=== PATIENT | female | born 1970 | race Caucasian/White ===

== ENCOUNTER 2017-06-05 08:16 | Day surgery (SDC) | payer BC ==
[2017-06-02 10:26] VITALS: BMI 24.3
[2017-06-05] MEDS ORDERED: methylPREDNISolone ACET (DEPO) 40 MG/1 ML VIAL ONE (08:44)
[2017-06-05] MEDS ORDERED: THROMBIN (BOVINE) 5,000 UNIT VIAL TP ONE ×4 (08:45→12:34)
[2017-06-05] MEDS ORDERED: oxyCODONE HCL 10 MG SUSTAINED ACTING TABLET ONE (09:52)
[2017-06-05] MEDS ORDERED: DEXAMETHASONE SOD PHOSPHATE/PF 10 MG/ML SDV ONE (10:46)
[2017-06-05] MEDS ORDERED: MIDAZOLAM HCL 2 MG/2 ML SINGLE DOSE VIAL ONE ×2 (10:46→12:16)
[2017-06-05] MEDS ORDERED: BUPIVACAINE HCL/PF (5 MG/ML) 30 ML VIAL IJ ONE (10:46)
[2017-06-05] MEDS ORDERED: oxyCODONE HCL 10 MG SUSTAINED ACTING TABLET PO ONE (10:56)
--- NOTE | 2017-06-05 10:56 | HP ---
History & Physical Update - History History: No Change - Physical Physical: No Change - Assessment Assessment: No Change - Plan Plan: No Change
[2017-06-05] MEDS ORDERED: LIDOCAINE 1%/EPI 1:100000 (20 ML MULTI DOSE VIAL) ONE (11:31)
[2017-06-05] MEDS ORDERED: ONDANSETRON 4 MG/2 ML VIAL ONE ×2 (11:38→13:53)
[2017-06-05] MEDS ORDERED: ceFAZolin SODIUM 1 GM VIAL ONE (11:38)
[2017-06-05] MEDS ORDERED: DEXAMETHASONE SOD PHOSPHATE 4 MG/1 ML VIAL ONE (11:38)
[2017-06-05] MEDS ORDERED: LIDOCAINE 1%/EPI 1:100000 (20 ML MULTI DOSE VIAL) IJ ONE (11:45)
[2017-06-05] MEDS ORDERED: methylPREDNISolone ACET (DEPO) 40 MG/1 ML VIAL IM ONE ×3 (11:54→12:30)
[2017-06-05] MEDS ORDERED: GUM MASTIC/STORAX/MSAL/ALCOHOL 1 DRP DROPSBTL MC ONE (12:47)
[2017-06-05] MEDS ORDERED: LIDOCAINE HCL/PF 2% SDV 5ML VIAL INF ONE (12:51)
[2017-06-05] MEDS ORDERED: oxyCODONE HCL 5 MG TABLET PO PRN (13:30)
[2017-06-05] MEDS ORDERED: ONDANSETRON 4 MG/2 ML VIAL IVPUSH PRN (13:30)
[2017-06-05] MEDS ORDERED: LACTATED RINGERS SOLUTION 1,000 ML IV SCH (13:30)
--- NOTE | 2017-06-05 14:19 | OP ---
Operative Note - Note: Operative Date: 06/05/17 Pre-Operative Diagnosis: lumbar stenosis/disc herniation Operation: lmainectomy of L5-S1 with microdisectomy Surgeon: Timur Villalta Senior Hr Generalist: Vickie Alberto Anesthesiologist/TEST ENGINEERING TECHNICIAN: Abbi Valverde Anesthesia: Spinal Specimens Removed: disc Estimated Blood Loss (mls): 30 Fluid Volume Replaced (mls): 1,000 Operative Report Dictated: Yes
--- NOTE | 2017-06-05 14:20 | SURG ---
Surgery Railway Switch Operator Note Railway Switch Operator: Vickie Alberto PA-C Date of Service: 06/05/17 Diagnosis: lumbar stenosis/disc herniation Procedure: laminectomy of L5-S1 with microdisectomy I was present for the entirety of the operative procedure. For further detail, please refer to operative report. Visit type - Case Type Case Type: Scheduled Admission - Emergency Emergency Visit: No - New patient This patient is new to me today: Yes Date on this admission: 06/05/17
[2017-06-05 15:13] VITALS: TEMP 97.8
[2017-06-05] MEDS ORDERED: oxyCODONE HCL 5 MG TABLET ONE (15:28)
[2017-06-05 17:05] VITALS: BP 124/80; PULSE 74
--- NOTE | 2017-06-05 19:47 | OP ---
DATE OF OPERATION: 06/05/2017 PREOPERATIVE DIAGNOSIS: Spinal stenosis, L5-S1. POSTOPERATIVE DIAGNOSIS: Spinal stenosis, L5-S1. PROCEDURE PERFORMED: Laminectomy, L5-S1. SURGEON: Timur Villalta MD LANDSCAPE ENGINEER: JAIRO Carbajal ESTIMATED BLOOD LOSS: 50 mL INTRAVENOUS FLUIDS: Per Anesthesia. ANESTHESIA: Spinal/TLIP. COMPLICATIONS: None. DISPOSITION: Patient was brought to PACU in stable condition. INDICATION FOR SURGERY: The patient is a 47-year-old female who has been suffering from pain from her back down her leg. X-rays and MRI were completed which noted that she had spinal stenosis at L5-S1. She had gone through an exhaustive course of treatment for this, which included medications, physical therapy as well as injections. Unfortunately, her pain continued to persist despite all this. At this point, risks, benefits, and alternatives were discussed, and the patient consented to surgery. DESCRIPTION OF PROCEDURE: Patient was brought to the operating room by the Anesthesia staff. After appropriate patient identification was performed, spinal anesthesia was given, and a TLIP block was given. Patient was able to position herself prone onto the OR table with all areas of bony prominences well padded at this time. Two needles were placed into the back to kassie off the L5-S1 level. X-ray was taken to confirm this as correct. [place] were removed, and 10 mL of lidocaine with epinephrine were injected in her back at this time. Her back was prepped and draped in a sterile manner. At this point, a timeout was completed. An incision was made from the top of L5 down to the bottom of S1. Dissection was carried down to the fascia. Fascia was then split open at this time, and appropriate retractors were then placed in. A spinal needle was placed onto the L5 lamina to kassie off the L5-S1 level. An x-ray was taken to confirm this as correct. The needle was removed, and the microscope was brought in. The interspinous ligament at L5-S1 was removed. Portion of the L5-S1 spinous process was removed. The flavum was identified, was removed. A complete decompression was performed such that by the end of the procedure the S1 nerve root appeared to be well decompressed. At this point, the nerve root was mobilized medially. A disk herniation was noted. It was removed at this time. All bleeding was well controlled at this time. Steroid was placed over the nerve root. FloSeal was placed over that. The fascia was closed with a No. 1 Vicryl suture. Subcutaneous tissues were closed with 2-0 Vicryl suture. Skin was closed with 3-0 Monocryl suture. Dermabond was applied. Steri-Strips were applied. A sterile dressing was applied. Patient was placed supine on the OR bed and brought to the PACU in stable condition. Vinayak LLOYD/[id number]
--- NOTE | 2017-06-07 14:56 | PATH ---
Surgical Pathology Report Patient Name: MATEO FERGUSON Med. Rec. #: [id number] /Age/Gender: 1970 (Age: 47) / F Account: [id number] Location: [facility] Taken: 06/05/2017 Received: 06/05/2017 Reported: 06/07/2017 Physicians: Timur Villalta M.D. Specimen(s) Received L5-S1 DISC Clinical History Spinal stenosis Final Diagnosis DISC, L5-S1, LAMINECTOMY: CARTILAGE WITH DEGENERATIVE CHANGES. Electronically Signed Perla Newberry M.D. Gross Description Received in formalin labelled "L5-S1 disc" is a 1.5 x 1.5 x 0.4 cm aggregate of villavicencio tissue fragments. Totally submitted in one cassette. [facility]/06/06/2017 [facility]/06/06/2017
== END 2017-06-05 16:50 | disposition home or self-care (01) ==
LOC: FASU 08:16
PROVIDERS: ATTEND Orthopaedic Surgery Orthopaedic Surgery of the Spine
PROC: 01NB0ZZ Release Lumbar Nerve, Open Approach (ICD-10-PCS; principal; 2017-06-05 12:02)
DX: M48.07 Spinal stenosis, lumbosacral region (principal)
CPT/HCPCS: 72100-TC-FY; 76000-TC-FY; 84703; 88304-TC

== ENCOUNTER 2018-06-04 08:25 | Day surgery (SDC) | payer BC ==
[2018-05-29 10:49] VITALS: BMI 25.4
[~2018-06-04 08:25] MED LIST: oxyCODONE HCL 10 MG SUSTAINED ACTING TABLET PO ONE
[2018-06-04] MEDS ORDERED: oxyCODONE HCL 10 MG SUSTAINED ACTING TABLET ONE (09:03)
[2018-06-04] MEDS ORDERED: BUPIVACAINE HCL/PF 2.5 MG/ML - 30 ML VIAL IJ ONE (10:58)
[2018-06-04] MEDS ORDERED: DEXAMETHASONE SOD PHOSPHATE/PF 10 MG/ML SDV ONE (10:58)
[2018-06-04] MEDS ORDERED: MIDAZOLAM HCL 2 MG/2 ML SINGLE DOSE VIAL ONE (10:58)
[2018-06-04] MEDS ORDERED: BUPIVACAINE HCL/PF (5 MG/ML) 30 ML VIAL IJ ONE (10:58)
--- NOTE | 2018-06-04 10:59 | HP ---
History & Physical Update - History History: No Change - Physical Physical: No Change - Assessment Assessment: No Change - Plan Plan: No Change (H&P in chart from 05/18/2018)
[2018-06-04] MEDS ORDERED: LIDOCAINE 1%/EPI 1:100000 (20 ML MULTI DOSE VIAL) ONE (11:19)
[2018-06-04] MEDS ORDERED: GUM MASTIC/STORAX/MSAL/ALCOHOL 1 DRP DROPSBTL MC ONE (11:19)
[2018-06-04] MEDS ORDERED: THROMBIN (BOVINE) 5,000 UNIT VIAL TP ONE ×2 (11:19→12:31)
[2018-06-04] MEDS ORDERED: methylPREDNISolone ACET (DEPO) 40 MG/1 ML VIAL ONE (11:19)
[2018-06-04] MEDS ORDERED: ceFAZolin SODIUM 1 GM VIAL ONE (12:08)
[2018-06-04] MEDS ORDERED: LIDOCAINE 1%/EPI 1:100000 (50 ML MULTI DOSE VIAL) INF ONE (12:15)
[2018-06-04] MEDS ORDERED: GELATIN SPONGE,ABSORBABLE 1 GM PACKET TP ONE (12:32)
[2018-06-04] MEDS ORDERED: oxyCODONE HCL 5 MG TABLET PO PRN (12:50)
[2018-06-04] MEDS ORDERED: ONDANSETRON 4 MG/2 ML VIAL IVPUSH PRN (12:50)
[2018-06-04] MEDS ORDERED: LACTATED RINGERS SOLUTION 1,000 ML IV SCH (13:00)
[2018-06-04] MEDS ORDERED: methylPREDNISolone ACET (DEPO) 40 MG/1 ML VIAL IM ONE (13:02)
--- NOTE | 2018-06-04 13:31 | OP ---
Operative Note - Note: Operative Date: 06/04/18 Pre-Operative Diagnosis: lulmbar stenosis Operation: lumbar laminectoy of L4-L5 Surgeon: Timur Villalta Production Quality Manager: Vickie Alberto Anesthesiologist/PRACTICE REPRESENTATIVE: Pablo Faust Anesthesia: Spinal Estimated Blood Loss (mls): 20 Fluid Volume Replaced (mls): 800 Operative Report Dictated: Yes
--- NOTE | 2018-06-04 13:32 | SURG ---
Surgery Contract Implementation Analyst Note Contract Implementation Analyst: Vickie Alberto PA-C Date of Service: 06/04/18 Diagnosis: lumbar stenosis Procedure: laminectomy of L4-L5 I was present for the entirety of the operative procedure. For further detail, please refer to operative report. Visit type - Case Type Case Type: Scheduled - Emergency Emergency Visit: No - New patient This patient is new to me today: Yes Date on this admission: 06/04/18
[2018-06-04] MEDS ORDERED: oxyCODONE HCL 5 MG TABLET ONE (15:21)
[2018-06-04 16:55] VITALS: BP 114/64; PULSE 62; TEMP 98.2
--- NOTE | 2018-06-05 09:49 | OP ---
DATE OF OPERATION: 06/04/2018 PREOPERATIVE DIAGNOSIS: Reherniation, L5-S1. POSTOPERATIVE DIAGNOSIS: Reherniation, L5-S1. PROCEDURE PERFORMED: Revision laminectomy, L5-S1 SURGEON: Timur Villalta MD DEHYDROGENATION CONVERTER OPERATOR: JAIRO Carbajal ESTIMATED BLOOD LOSS: 50 mL. INTRAVENOUS FLUID: Per Anesthesia. ANESTHESIA: Spinal/TLIP. COMPLICATIONS: There were none. DISPOSITION: Patient brought to the PACU in stable condition. INDICATIONS FOR SURGERY: The patient is a 48-year-old female who had previously undergone laminectomy. She had done well from that surgery. About a year later, she began to have pain from her back down her left leg. X-rays and MRI were completed, which noted that she had a reherniation. She had gone through an exhaustive course of treatment for this which medications, physical therapy, and injections. Unfortunately, her pain continued to persist despite all this. At this point, risks, benefits, and alternatives were discussed, and the patient consented to surgery. OPERATIVE NOTE: Patient was brought to the operating room by the anesthesia staff. After appropriate patient identification was performed and spinal anesthesia was given, a TLIP block was given. Patient was able to position herself prone onto the [place] frame with all areas of bony prominences well padded. At this time, 2 needles were placed into her back to kassie off the L5-S1 segments. X-rays taken and confirmed this was correct. [place] were removed, and 10 mL of lidocaine with epinephrine were injected into her back at this time. Her back was prepped and draped in a sterile manner. At this point, a time-out was completed. An incision was over the previous incision. Dissection was carried down to the fascia. The fascia was then split at this time. Appropriate retractors were then placed in. The spinal needle was placed onto the L5 lamina to kassie off the L5-S1 level. X-rays taken to confirm this was correct. Needle was removed, and the microscope was brought in. The spinal needle at the segment of L5-S1 was removed. The scar tissue around L5-S1 was removed. The nerve root was mobilized medially. A disc herniation was noted, and it was removed. By the end of the procedure, the S1 nerve root appeared to be well decompressed. All bleeding was well controlled at this time. Steroid was placed over the nerve root. Floseal was placed over that. The fascia was closed with a No. 1 Vicryl suture. The subcutaneous tissues were closed with 2-0 Vicryl suture. Skin was closed with 3-0 Monocryl suture. Dermabond was applied. Steri-Strips were applied. Sterile dressings applied. Patient was placed supine on the OR bed and brought to the PACU in stable condition. Vinayak LLOYD/[id number]
--- NOTE | 2018-06-06 16:01 | PATH ---
Surgical Pathology Report Patient Name: MATEO FERGUSON [facility]. Rec. #: [id number] /Age/Gender: 1970 (Age: 48) / F Account: [id number] [facility] Taken: 06/04/2018 Received: 06/04/2018 Reported: 06/06/2018 Physicians: Timur Villalta M.D. Specimen(s) Received L5-S1 DISC Clinical History Spinal stenosis Final Diagnosis L5-S1 DISC, LAMINECTOMY: CARTILAGE WITH DEGENERATIVE CHANGES. Electronically Signed Perla Newberry M.D. Gross Description Received in formalin labeled "L5-S1 disc," is a 1.5 x 1.0 x 0.3 cm aggregate of villavicencio fragments of fibrocartilaginous tissue. The specimen is submitted in toto in one cassette. 06/05/201806/05/2018
== END 2018-06-04 16:56 | disposition home or self-care (01) ==
LOC: FASU 08:25
PROVIDERS: ATTEND Orthopaedic Surgery Orthopaedic Surgery of the Spine
PROC: 01NB0ZZ Release Lumbar Nerve, Open Approach (ICD-10-PCS; 2018-06-04)
PROC: 01NB0ZZ Release Lumbar Nerve, Open Approach (ICD-10-PCS; principal; 2018-06-04 12:26)
DX: M51.27 Other intervertebral disc displacement, lumbosacral region (principal)
CPT/HCPCS: 84703; 88304-TC; 94760

== ENCOUNTER 2018-09-27 06:31 | Inpatient (IN) | payer BC ==
[2018-09-26 14:33] VITALS: BMI 25.6
[2018-09-27] MEDS ORDERED: CEFAZOLIN 2 GM in DEXTROSE 5%-WATER - 100 ML IVPB ONE (06:47)
[2018-09-27] MEDS ORDERED: oxyCODONE HCL 10 MG SUSTAINED ACTING TABLET PO STA (06:47)
[2018-09-27] MEDS ORDERED: BUPIVACAINE LIPOSOME/PF (EXPAREL) 266 MG/20 ML VIAL ONE (07:13)
[2018-09-27] MEDS ORDERED: MIDAZOLAM HCL 2 MG/2 ML SINGLE DOSE VIAL ONE ×3 (07:16→08:57)
[2018-09-27] MEDS ORDERED: PROPOFOL 20 ML ONE ×2 (07:19→08:55)
[2018-09-27] MEDS ORDERED: LIDOCAINE HCL/PF 2% SDV 5ML VIAL ONE ×2 (07:20→08:54)
[2018-09-27] MEDS ORDERED: SUCCINYLCHOLINE CHLORIDE 200 MG/10 ML VIAL ONE (07:20)
--- NOTE | 2018-09-27 07:20 | HP ---
History & Physical Update - History History: No Change - Physical Physical: No Change - Assessment Assessment: No Change - Plan Plan: No Change (Initial H&P is located in her paper chart 09/26/18. No new complaints or mediations. C/o LBP w/ LLE radiculopathy Of note: s/p laminectomy 06/04/18)
[2018-09-27] MEDS ORDERED: ONDANSETRON 4 MG/2 ML VIAL IVPUSH PRN ×2 (07:37→10:45)
[2018-09-27] MEDS ORDERED: oxyCODONE HCL 5 MG TABLET PO PRN ×3 (07:37→10:45)
[2018-09-27] MEDS ORDERED: THROMBIN (RECOMBINANT) 5,000 UNIT VIAL TP ONE (07:37)
[2018-09-27] MEDS ORDERED: LACTATED RINGERS SOLUTION 1,000 ML IV SCH (07:45)
[2018-09-27] MEDS ORDERED: ceFAZolin SODIUM 1 GM VIAL ONE (09:15)
[2018-09-27] MEDS ORDERED: THROMBIN (BOVINE) 5,000 UNIT VIAL TP ONE (09:28)
[2018-09-27] MEDS ORDERED: GELATIN SPONGE,ABSORBABLE 1 GM PACKET TP ONE (09:29)
[2018-09-27] MEDS ORDERED: ACETAMINOPHEN 1000 MG/100 ML VIAL (NON FORMULARY) IVPB ONE (10:00)
[2018-09-27] MEDS ORDERED: GUM MASTIC/STORAX/MSAL/ALCOHOL 1 DRP DROPSBTL MC ONE (10:22)
--- NOTE | 2018-09-27 10:42 | OP ---
Operative Note - Note: Operative Date: 09/27/18 Pre-Operative Diagnosis: L5/S1 spondylolithesis w/ LLE radiculopathy Operation: L5/S1 TLIF. Allograft Implant. Neuromonitoring Post-Operative Diagnosis: Same as Pre-op Surgeon: Timur Villalta Group Director: Martin Lu Anesthesiologist/AIRPLANE PILOT CROP DUSTING: Douglas Van Anesthesia: Spinal Estimated Blood Loss (mls): 20 Fluid Volume Replaced (mls): 1,000 Operative Report Dictated: Yes
--- NOTE | 2018-09-27 10:44 | SURG ---
Surgery Core Cutter And Reamer Note Core Cutter And Reamer: Martin Lu PA-C Date of Service: 09/27/18 Diagnosis: L5/S1 Spondylolithesis w/ left lower extremity radiculopathy Procedure: Posterior lumbar decompression / fusion / instrumentation / transforaminal lumbar interbody fusion L5/S1 / Allograft implant / Neuromonitoring I was present for the entirety of the operative procedure. For further detail, please refer to operative report. Visit type - Case Type Case Type: Scheduled - New patient This patient is new to me today: Yes Date on this admission: 09/27/18
[2018-09-27] MEDS ORDERED: ACETAMINOPHEN 1000 MG/100 ML VIAL (NON FORMULARY) IVPB PRN (10:45)
[2018-09-27] MEDS ORDERED: KETOROLAC TROMETHAMINE 30 MG/1 ML VIAL IVPUSH PRN (10:45)
[2018-09-27] MEDS ORDERED: ACETAMINOPHEN INJECTION 100 ML IVPB ONE (10:56)
[2018-09-27] MEDS ORDERED: diazePAM 2 MG TABLET PO ONE (13:30)
[2018-09-27] MEDS: oxyCODONE HCL 5 MG TABLET PO PRN ×2 (13:41→21:32)
[2018-09-27] MEDS: LACTATED RINGERS SOLUTION 1,000 ML IV SCH (13:42)
[2018-09-27] MEDS: ACETAMINOPHEN 325 MG TABLET (FP) PO SCH (18:54)
[2018-09-27] MEDS: CEFAZOLIN 1 GM/D5W 1 GM/50 ML BAG IVPB SCH (18:54)
[2018-09-27] MEDS: diazePAM 2 MG TABLET PO SCH (21:32)
[2018-09-27] MEDS: DOCUSATE SODIUM 100 MG CAPSULE (FP) PO SCH (21:32)
[2018-09-28] MEDS: ACETAMINOPHEN 325 MG TABLET (FP) PO SCH ×3 (00:21→12:22)
--- NOTE | 2018-09-28 00:31 | OP ---
DATE OF OPERATION: 09/27/2018 PREOPERATIVE DIAGNOSIS: Spinal stenosis, L5-S1. POSTOPERATIVE DIAGNOSIS: Spinal stenosis, L5-S1. PROCEDURE PERFORMED: Transforaminal lumbar interbody fusion, L5-S1; placement of instrumentation, L5-S1; placement of prosthetic cage; and revision laminectomy. SURGEON: Timur Villalta MD VENDING ROUTE DRIVER: JAIRO Guillermo ESTIMATED BLOOD LOSS: 50 mL. IV FLUIDS: Per Anesthesia. ANESTHESIA: Spinal/TLIF. COMPLICATIONS: There were none. DISPOSITION: Patient brought to the PACU in stable condition. INDICATION FOR SURGERY: The patient is a 48-year-old female who has been suffering from pain from her back down her left leg. X-rays and MRI were completed, which show that she had re-herniation at L5-S1. She had previously undergone a laminectomy for a herniated disk. She had gone through an exhaustive course of treatment for this, which included medications, physical therapy as well as injections. Unfortunately, her pain continued to persist despite all this. At this point, risks, benefits, and alternatives were discussed and the patient consented to surgery. OPERATIVE NOTE: The patient was brought to the operating room by anesthesia staff. After appropriate patient identification was performed, spinal anesthesia was given. A TLIF block was also given. Patient was able to position herself prone onto the OR table, with all areas of bony prominences well padded at this time. The C-arm was brought in. The L5-S1 pedicles were marked off. Her back was prepped and draped in a sterile manner. At this point, timeout was completed. An incision was made bilaterally over the L5-S1 pedicles. Dissection was carried down to the fascia. The fascia was then split at this time. Under C-arm guidance, trocars were advanced into both the L5 and S1 pedicles. Through the trocar, a wire was inserted. Over the wire, a tap was performed, screws were inserted. On the left-hand side, retractor blades were set up to expose the L5-S1 facet joint. The facet joint was marked and confirmed with x-ray. The facet joint was removed. The disk was entered. Using a series of pituitaries, Kerrisons and curettes, a diskectomy was completed. The endplates were decorticated at this time. Bone graft was laid down. A cage filled with bone graft was placed in. TLIF pins were placed over the screws. A shanon was measured and placed in. Caps were placed on. Compression and final tightening was performed. On the right-hand side, a shanon was measured and placed in. Caps and compression was applied. Final tightening was performed. AP and lateral x-rays confirmed the instrumentation to be in good position. The fascia was closed with a number 1 Vicryl suture. The subcutaneous tissue was closed with 2-0 Vicryl suture. Skin was closed with 3-0 Monocryl suture. Dermabond was applied, Steri-Strips were applied, sterile dressing. Patient was placed supine on OR bed and brought to the PACU in stable condition. Vinayak LLOYD/[id number]
[2018-09-28] MEDS: CEFAZOLIN 1 GM/D5W 1 GM/50 ML BAG IVPB SCH ×2 (01:18→09:32)
[2018-09-28] MEDS: oxyCODONE HCL 5 MG TABLET PO PRN ×2 (06:09→12:22)
[2018-09-28 08:14] LABS: HEMATOCRIT 33.9 % (32.4-45.2); HEMOGLOBIN 11.3 GM/dl (10.7-15.3); MCH 29.2 pg (25.7-33.7); MCHC 33.2 g/dl (32.0-36.0); MEAN PLT VOLUME 8.2 fl (7.5-11.1); PLATELET COUNT 251 K/MM3 (134-434); RBC 3.86 M/mm3 (3.60-5.2); RDW 13.8 % (11.6-15.6); WHITE BLOOD COUNT 13.1 K/mm3 (4.0-10.8)
[2018-09-28 08:16] LABS: CREATININE 0.7 mg/dl (0.55-1.3); POTASSIUM 4.7 mmol/L (3.5-5.1)
[2018-09-28 09:32] VITALS: BP 106/65; PULSE 79; TEMP 98
[2018-09-28] MEDS: DOCUSATE SODIUM 100 MG CAPSULE (FP) PO SCH (09:33)
[2018-09-28] MEDS: diazePAM 2 MG TABLET PO SCH (09:33)
[2018-09-28] MEDS: LACTATED RINGERS SOLUTION 1,000 ML IV SCH (10:23)
--- NOTE | 2018-09-28 11:57 | DS ---
Physical Exam: SUBJECTIVE: Patient seen and examined this am. She states that her left buttock pain is gone, still has some left leg pain. OBJECTIVE: Vital Signs Temperature 98.0 F 09/28/18 09:31 Pulse Rate 79 09/28/18 09:31 Respiratory Rate 18 09/28/18 09:31 Blood Pressure 106/65 09/28/18 09:31 O2 Sat by Pulse Oximetry (%) 97 09/28/18 09:31 PHYSICAL EXAM GENERAL: The patient is awake, alert, and fully oriented, in no acute distress. LUNGS: Breath sounds equal, clear to auscultation bilaterally. HEART: Regular rate and rhythm. ABDOMEN: Soft, nontender, nondistended. BACK: Dressing c/d/i. minimal ecchymosis at base of dressing. EXTREMITIES: 5/5 dorsi/plantar flexion/EHL b/l, no edema or calf leg tenderness. PSYCH: Normal mood, normal affect. LABS CBC,CMP WBC 13.1 K/mm3 (4.0-10.8) H 09/28/18 06:58 RBC 3.86 M/mm3 (3.60-5.2) 09/28/18 06:58 Hgb 11.3 GM/dl (10.7-15.3) 09/28/18 06:58 Hct 33.9 % (32.4-45.2) 09/28/18 06:58 MCV 88.0 fl (80-96) 09/28/18 06:58 MCH 29.2 pg (25.7-33.7) 09/28/18 06:58 MCHC 33.2 g/dl (32.0-36.0) 09/28/18 06:58 RDW 13.8 % (11.6-15.6) 09/28/18 06:58 Plt Count 251 K/MM3 (134-434) 09/28/18 06:58 MPV 8.2 fl (7.5-11.1) 09/28/18 06:58 Sodium 138 mmol/L (136-145) 09/28/18 06:58 Potassium 4.7 mmol/L (3.5-5.1) 09/28/18 06:58 Chloride 104 mmol/L (98-107) 09/28/18 06:58 Carbon Dioxide 23 mmol/L (21-32) 09/28/18 06:58 Anion Gap 11 MMOL/L (8-16) 09/28/18 06:58 BUN 17 mg/dl (7-18) 09/28/18 06:58 Creatinine 0.7 mg/dl (0.55-1.3) 09/28/18 06:58 Est GFR (CKD-EPI)AfAm 117.91 09/28/18 06:58 Est GFR (CKD-EPI)NonAf 101.74 09/28/18 06:58 Random Glucose 106 mg/dl (74-106) 09/28/18 06:58 Calcium 9.0 mg/dl (8.5-10) 09/28/18 06:58 HOSPITAL COURSE: The patient was admitted to the Med-Surg Unit after an elective repair of their spondylolisthesis . Now, s/p L5-S1 TLIF. The day of surgery, the patient ambulated the hallways with assistance. Narcotic and non-narcotic pain management control was achieved with an oral and IV approach. An xray was obtained and confirmed hardware placement at L5-S1, no fractures or dislocations. Joyce-operative IV ABX were administered. DVT prophylaxis was achieved with SCDs and early ambulation. The patient ambulated with Physical Therapy and no services were recommended upon discharge. Narcotic scripts and or muscle relaxants were checked with [employer] prior to escibe. The discharge instructions and an oral pain management plan were reviewed with the patient. All questions answered. Above plan discussed with Dr. Villalta and agreed. Date of Admission:09/27/18 Date of Discharge: 09/28/18 Minutes to complete discharge: 20 <Vickie Alberto - Last Filed: 09/28/18 12:02> Physical Exam: SUBJECTIVE: Patient seen and examined OBJECTIVE: Vital Signs Temperature 98.0 F 09/28/18 09:31 Pulse Rate 79 09/28/18 09:31 Respiratory Rate 18 09/28/18 09:31 Blood Pressure 106/65 09/28/18 09:31 O2 Sat by Pulse Oximetry (%) 97 09/28/18 09:31 PHYSICAL EXAM GENERAL: The patient is awake, alert, and fully oriented, in no acute distress. HEAD: Normal with no signs of trauma. EYES: PERRL, extraocular movements intact, sclera anicteric, conjunctiva clear. ENT: Ears normal, nares patent, oropharynx clear without exudates, moist mucous membranes. NECK: Trachea midline, full range of motion, supple. LUNGS: Breath sounds equal, clear to auscultation bilaterally, no wheezes, no crackles, no accessory muscle use. HEART: Regular rate and rhythm, S1, S2 without murmur, rub or gallop. ABDOMEN: Soft, nontender, nondistended, normoactive bowel sounds, no guarding, no rebound, no hepatosplenomegaly, no masses. EXTREMITIES: 2+ pulses, warm, well-perfused, no edema. NEUROLOGICAL: Cranial nerves II through XII grossly intact. Normal speech, gait not observed. PSYCH: Normal mood, normal affect. SKIN: Warm, dry, normal turgor, no rashes or lesions noted. LABS CBC,CMP WBC 13.1 K/mm3 (4.0-10.8) H 09/28/18 06:58 RBC 3.86 M/mm3 (3.60-5.2) 09/28/18 06:58 Hgb 11.3 GM/dl (10.7-15.3) 09/28/18 06:58 Hct 33.9 % (32.4-45.2) 09/28/18 06:58 MCV 88.0 fl (80-96) 09/28/18 06:58 MCH 29.2 pg (25.7-33.7) 09/28/18 06:58 MCHC 33.2 g/dl (32.0-36.0) 09/28/18 06:58 RDW 13.8 % (11.6-15.6) 09/28/18 06:58 Plt Count 251 K/MM3 (134-434) 09/28/18 06:58 MPV 8.2 fl (7.5-11.1) 09/28/18 06:58 Sodium 138 mmol/L (136-145) 09/28/18 06:58 Potassium 4.7 mmol/L (3.5-5.1) 09/28/18 06:58 Chloride 104 mmol/L (98-107) 09/28/18 06:58 Carbon Dioxide 23 mmol/L (21-32) 09/28/18 06:58 Anion Gap 11 MMOL/L (8-16) 09/28/18 06:58 BUN 17 mg/dl (7-18) 09/28/18 06:58 Creatinine 0.7 mg/dl (0.55-1.3) 09/28/18 06:58 Est GFR (CKD-EPI)AfAm 117.91 09/28/18 06:58 Est GFR (CKD-EPI)NonAf 101.74 09/28/18 06:58 Random Glucose 106 mg/dl (74-106) 09/28/18 06:58 Calcium 9.0 mg/dl (8.5-10) 09/28/18 06:58 HOSPITAL COURSE: Date of Admission:09/27/18 Date of Discharge: 09/28/18 Patient seen and examined Agree with above D/C Planning <Timur Villalta - Last Filed: 09/28/18 12:12> Visit type - Case Type Case Type: Scheduled - Emergency Emergency Visit: No - New patient This patient is new to me today: Yes Date on this admission: 09/28/18 - Critical Care Critical Care patient: No <Vickie Alberto - Last Filed: 09/28/18 12:02>
--- NOTE | 2018-09-28 13:18 | PN ---
Progress Note (short form) - Note Progress Note: ANESTHESIA POSTOP 48 YO FEMALE POD#1 S/P REVISION LUMBAR FUSION, SPINAL ANESTHESIA Patient walking around in room. Pain well controlled with PO medications. Tolerating PO. VSS, afebrile Continue current care. Encouraged IS and participation in PT as directed by surgery team. No anesthetic complications.
== END 2018-09-28 13:47 | disposition home or self-care (01) | DRG 455 ==
LOC: FM/S 06:31
PROVIDERS: ADMIT Orthopaedic Surgery Orthopaedic Surgery of the Spine; ATTEND Orthopaedic Surgery Orthopaedic Surgery of the Spine
PROC: 0SG30K1 Fusion of Lumbosacral Joint with Nonautologous Tissue Substitute, Posterior Approach, Posterior Column, Open Approach (ICD-10-PCS; 2018-09-27)
PROC: 0SB40ZZ Excision of Lumbosacral Disc, Open Approach (ICD-10-PCS; 2018-09-27)
PROC: 4A11X4G Monitoring of Peripheral Nervous Electrical Activity, Intraoperative, External Approach (ICD-10-PCS; 2018-09-27)
PROC: 0SG30AJ Fusion of Lumbosacral Joint with Interbody Fusion Device, Posterior Approach, Anterior Column, Open Approach (ICD-10-PCS; principal; 2018-09-27 08:35)
DX: M48.07 Spinal stenosis, lumbosacral region (principal); M43.17 Spondylolisthesis, lumbosacral region; M54.17 Radiculopathy, lumbosacral region; F41.9 Anxiety disorder, unspecified
CPT/HCPCS: 36415; 72100-TC-FY; 76000-TC-FY; 80048; 84703; 85027; 94760; 97116-GP; 97162-GP; J0131